=== PATIENT | male | born 1995 | race Hispanic/Latino ===

== ENCOUNTER 2017-08-11 23:05 | Emergency (ER) | payer BC ==
[2017-08-11 23:20] VITALS: BMI 34.8
[2017-08-11 23:21] VITALS: TEMP 98.1
--- NOTE | 2017-08-11 23:23 | ED PDOC ---
Arrival/HPI - General Time Seen by Provider: 08/11/17 23:09 Historian: Patient - History of Present Illness Narrative History of Present Illness (Text): you were treated in the ED today for hx of anxiety, having stress at work as concerned for possible job loss and stayed late today and stress was worsening and called ambulance but otherwise without any thoughts to harm yourself or others or hallucinations/loss of consciousness/nausea/vomiting/headache/ dizziness/difficulty breathing/chest pain/abdomen pain/numbness/tingling/loss of limb function/pain with urination. Time/Duration: 1-3 hours Symptom Onset: Gradual Symptom Course: Improving Quality: Other (no pain) Activities at Onset: Rest Context: Sitting Past Medical History - Provider Review Nursing Documentation Reviewed: Yes - Travel History Have you recently traveled outside [place] w/in the past 3 mons?: No Family/Social History - Physician Review Nursing Documentation Reviewed: Yes Family/Social History: No Known Family HX Review of Systems - Review of Systems Constitutional: Normal Eyes: Normal ENT: Normal Respiratory: Normal Cardiovascular: Normal Gastrointestinal: Normal Genitourinary Male: Normal Musculoskeletal: Normal Skin: Normal Neurological: Normal Endocrine: Normal Hemo/Lymphatic: Normal Psychiatric: Anxiety. absent: Normal, Depression, Suicidal Ideation, Other Physical Exam Vital Signs Reviewed: Yes Vital Signs Temp Pulse Resp BP Pulse Ox 08/11/17 23:47 89 18 130/87 100 08/11/17 23:20 98.1 F 110 H 20 139/98 H 98 Appearance: Positive for: Well-Appearing, Non-Toxic, Comfortable Pain Distress: None Mental Status: Positive for: Alert and Oriented X 3 - Systems Exam Head: Present: Atraumatic, Normocephalic Pupils: Present: PERRL Extroacular Muscles: Present: EOMI Conjunctiva: Present: Normal Ears: Present: Normal Mouth: Present: Moist Mucous Membranes Pharnyx: Present: Normal Nose (External): Present: Atraumatic Nose (Internal): Present: Normal Inspection Neck: Present: Normal Range of Motion Respiratory/Chest: Present: Clear to Auscultation, Good Air Exchange Cardiovascular: Present: Regular Rate and Rhythm Abdomen: No: Tenderness, Distention, Normal Bowel Sounds, Peritoneal Signs, Rebound, Guarding, McBurney's Point Tender, Rovsing's Sign Present, Hernias, Feeding Tubes, Ostomy Tubes, Mass/Organomegaly, Scars, Other Back: Present: Normal Inspection Upper Extremity: Present: Normal Inspection Lower Extremity: Present: Normal Inspection Neurological: Present: GCS=15, CN II-XII Intact, Speech Normal, Motor Func Grossly Intact Skin: Present: Warm, Normal Color Psychiatric: Present: Alert, Oriented x 3, Normal Insight, Normal Concentration , Anxious. No: Normal Affect, Normal Mood, Agitated, Depressed Mood, Suicidal Ideation, Homicidal Ideation, Delusional, Hallucinations, Intoxicated, Lethargic , Other Medical Decision Making ED Course and Treatment: you were treated in the ED today for hx of anxiety, having stress at work as concerned for possible job loss and stayed late today and stress was worsening and called ambulance but otherwise without any thoughts to harm yourself or others or hallucinations/loss of consciousness/nausea/vomiting/headache/ dizziness/difficulty breathing/chest pain/abdomen pain/numbness/tingling/loss of limb function/pain with urination. You were otherwise breathing easily, pink moist lips, mildly tearful, good strength/sensation, alert/oriented, walking easily, clear lungs, no abdomen tenderness, no fever temp 98.1, fast heart rate 110 and repeat 89, stable breathing rate 20, excellent oxygen level 98% room air , elevated blood pressure 139/98 which we recommend repeat in 2-3 days primary care office to determine further treatment, observation done in the ED with improvement, had a long discussion and patient and girlfriend who stated has no weapons and has had no prior suicidal attempts and lives with mother and girlfriend who he has purpose to live for and job to maintain at coffee shop, felt anxious and counselled to monitor symptoms and thus discharged home with girlfriend to continue to monitor patient. 1. Recommend follow-up primary care 2 days to review symptoms, referral to mental health clinic to review your symptoms. 2. If any worsening pain, fever, chills, nausea, vomiting, difficulty breathing, numbness, loss of limb function, pain with urination or any medical condition then return to the ED. Reassessment Condition: Re-examined, Improved Disposition/Present on Arrival - Present on Arrival Any Indicators Present on Arrival: No - Disposition Have Diagnosis and Disposition been Completed?: Yes Diagnosis: Anxiousness Disposition: HOME/ ROUTINE Disposition Time: 23:54 Patient Plan: Discharge Condition: IMPROVED Discharge Instructions (ExitCare): Anxiety, Adult (DC) Additional Instructions: you were treated in the ED today for hx of anxiety, having stress at work as concerned for possible job loss and stayed late today and stress was worsening and called ambulance but otherwise without any thoughts to harm yourself or others or hallucinations/loss of consciousness/nausea/vomiting/headache/ dizziness/difficulty breathing/chest pain/abdomen pain/numbness/tingling/loss of limb function/pain with urination. You were otherwise breathing easily, pink moist lips, mildly tearful, good strength/sensation, alert/oriented, walking easily, clear lungs, no abdomen tenderness, no fever temp 98.1, fast heart rate 110 and repeat 89, stable breathing rate 20, excellent oxygen level 98% room air , elevated blood pressure 139/98 which we recommend repeat in 2-3 days primary care office to determine further treatment, observation done in the ED with improvement, had a long discussion and patient and girlfriend who stated has no weapons and has had no prior suicidal attempts and lives with mother and girlfriend who he has purpose to live for and 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 1. Recommend follow-up primary care 2 days to review symptoms, referral to mental health clinic to review your symptoms. 2. If any worsening pain, fever, chills, nausea, vomiting, difficulty breathing, numbness, loss of limb function, pain with urination or any medical condition then return to the ED.
[2017-08-11 23:48] VITALS: PULSE 89; RESP 18; O2SAT 100
[2017-08-12 00:07] VITALS: BP 130/82
== END 2017-08-12 00:01 | disposition home or self-care (01) ==
LOC: ED 23:05
DX: F41.9 Anxiety disorder, unspecified (principal)